=== PATIENT | male | born 1980 | race Caucasian/White ===

== ENCOUNTER 2016-07-07 07:46 | Day surgery (SDC) | payer OTHER ==
[~2016-07-07 07:46] MED LIST: RINGERS SOLUTION,LACTATED 1,000 ML IV PRN; ceFAZolin SODIUM 1 GM VIAL IV PRN
--- OUTSIDE RECORDS SUMMARY | 2016-07-07 07:49 | XMS REPORT | Continuity of Care Document ---
:1980 Author Organization [facility] ([facility]) [place] [address] Phone [phone] Care Team Providers Name Role Phone Unavailable Primary Care Provider Unavailable Source Comments This disclosure is being made pursuant to the Care Everywhere program, applicable federal and state laws, and may not contain all informaitonavailable regarding this patient.[facility] ([facility]) Active Allergies and Adverse Reactions Not on File Current Medications Not on file Active Problems Not on file Social History Tobacco Use Types Packs/Day Years Used Date Never Assessed Plan of Care Health Maintenance Due Date Last Done Comments Hepatitis B Vaccine (1 of 3 - Primary Series) 1980 Tdap Vaccine 1989 Lipid Disorder Screening 1996 MMR Vaccine 1996 Td Vaccine 1996 Influenza Vaccine: Seasonal (#1) 11/03/2015 Results from Last 3 Months Not on file
[2016-07-07] MEDS ORDERED: RINGERS SOLUTION,LACTATED 1,000 ML IV ONE (09:50)
[2016-07-07] MEDS ORDERED: BUPIVACAINE HCL 50 ML VIAL IJ ONE (10:20)
--- NOTE | 2016-07-07 11:22 | OR ---
Operative Report - Dictated Report Narrative: Date: 07/07/2016 Physician: Dario Peter M.D. Diesel Motor Mechanic: Kvng Gonsalves PA-C Preoperative diagnosis: Bilateral cubital tunnel syndrome Postoperative diagnosis: Bilateral cubital tunnel syndrome Procedure: Bilateral ulnar nerve decompression at the cubital tunnel Anesthesia: General Plus local Complications: None Estimated blood loss: Minimal Tourniquet time: 21 Minutes at 250 mmHg on the right and on the left Specimens: None Retained implants: None Drains: None Indications: Mr. Sousa Is a 36-year-old gentleman who has been followed in my clinic with complaints of bilateral cubital tunnel syndrome. Physical exam as well as diagnostic testing showed compression of the ulnar nerve compatible with cubital tunnel syndrome. Conservative measures had failed including, but not limited to, activity modification, medications, and/or splinting. The risks, benefits, and alternatives were discussed in clinic. The risks being bleeding, infection, nerve, tendon, blood vessel injury, persistent pain, wound competitions, weakness, palm pain, need for additional procedures, and persistent symptoms. Consent was obtained in the clinic. Procedure: After marking the correct extremity in the preoperative holding area, a timeout was performed in the operating room. IV antibiotics consisting of Ancef were administered prior to the procedure. A well-padded tourniquet was applied to the operative upper arm. The arm was exsanguinated and the tourniquet was inflated to 250 mmHg. 0.5% Marcaine without epinephrine was infused into the projected incision site over the medial elbow. Using loupe magnification, a longitudinal incision centered over the cubital tunnel was made approximately 6 centimeters in length. We initially started on the left however the right side was the same. Blunt dissection was carried down to the subcutaneous tissues using bipolar cautery for hemostasis. Care was taken to protect the identified underlying cutaneous nerves. The ulnar nerve was identified as it passed through the medial intermuscular septum along the distal triceps. A release of the canal in this area as the ulnar nerve passed anterior to posterior was performed in order to decompress the nerve at this site. The nerve was dissected releasing the overlying soft tissues while maintaining the vascularity of the nerve down to the area of the medial epicondyles and Solano' s ligament. The nerve was completely decompressed as it passed posterior to the medial condyle and was followed into the flexor carpi ulnaris. The deep fascia of the flexor carpi ulnaris muscle was released in order to decompress the nerve at this site. The first branch of the ulnar nerve was protected as well as any identified recurrent branches. The elbow was placed through range of motion and it was noted that the nerve was not unstable nor did it appear to be under tension as it passed behind the medial epicondyle. For this reason it was not felt that a transposition was not necessary. Once it was felt that we had completely released the compressive structures on the ulnar nerve, the wound was thoroughly irrigated and the tourniquet was deflated. Hemostasis was obtained using pressure and bipolar cautery. Once adequate hemostasis was in place local anesthetic was placed in the skin edges, and the subcutaneous tissue was closed with interrupted Vicryl. The skin was closed with 4-0 nylon and Dermabond on the right and 4-0 nylon on the left and sterile dressings consisting of Xeroform, 4 x 4, soft roll, and a forearm Martin wrap was applied. All sponge, needle, blade, and instrument counts were correct prior to closing the wounds. The patient was awoken and transferred to the postanesthesia care unit in stable condition.
[2016-07-07 13:07] VITALS: BP 139/74
== END 2016-07-07 07:47 | disposition home or self-care (01) ==
LOC: AMB 07:46
PROVIDERS: ATTEND Orthopaedic Surgery
PROC: 01N40ZZ Release Ulnar Nerve, Open Approach (ICD-10-PCS; principal; 2016-07-07 09:45)
DX: G56.23 Lesion of ulnar nerve, bilateral upper limbs (principal); E29.1 Testicular hypofunction; L40.9 Psoriasis, unspecified; F17.200 Nicotine dependence, unspecified, uncomplicated; Z68.31 Body mass index [BMI] 31.0-31.9, adult